=== PATIENT | female | born 1940 | race Caucasian/White ===

== ENCOUNTER 2018-11-20 14:15 | Inpatient (IN) | payer MEDICARE ==
[~2018-11-20] VITALS: Ht 165.1 cm; Wt 64.1 kg
[~2018-11-20 14:15] MED LIST: FLUO20CA39 PO; HYDR-4353 PO; PRED5TAB PO
[2018-11-20] MEDS ORDERED: acetaminophen 325mg tablet PO PRN ×2 (16:00)
[2018-11-20] MEDS ORDERED: mag hydrox/Alum hydrox/simeth 30ml oral suspension PO PRN (16:00)
[2018-11-20] MEDS ORDERED: magnesium hydroxide 30ml (MOM) UD suspension PO PRN (16:00)
[2018-11-20] MEDS ORDERED: tuberculin, purif. prot. deriv. 5 units/0.1ml ID ONE (16:15)
[2018-11-20] MEDS ORDERED: ROSU20TA2 PO (16:28)
--- NOTE | 2018-11-20 16:49 | NUR ---
Admit note: Pt admitted at 1545. Pt accepted from [facility]. Pt lives at home with her son Jules. Pt admitted for psychosis. Pt has history of depression,polymyalgia,depression,HTN,cavity tuberculosis post lobectomy, hip replacement. Pt presents here with some confusion, some difficulty ambulating. Pt states she normally does not use a walker but is usually incontinent. Pt is using attends. PT had some old bluish pajama pants with holes in them and soiled with stool. Pt chose to throw them away. Pt being educated on using a walker and will use bed alarm and gait belt. Pt oriented to the unit. Pt [id number] completed.
[2018-11-20 19:58] VITALS: BP 125/63
[2018-11-20] MEDS: atorvastatin 20mg tablet PO SCH (21:00)
--- NOTE | 2018-11-21 04:40 | NUR ---
Nursing Progress Note: Legal hold: 5150 Client on voluntary/involuntary status for GD/DTS/DTO: DTS, GD Report received from nurse with use of SBAR: Yes, from Whit OLSON Why are they here: Pt was transferred to [facility] from [facility] where she was taken to the ER for DTS due to a call from her neighbors that reported pt was voicing depression and suicidal ideation. Pt was placed on a 1799 for possible psychosis at [facility], pt was reportedly responding to internal stimuli and saying "just kill me." Pt lives with son, Hermelindo. Upon arrival to [facility] pt refused to sign all admission and registration papers. Assessment What has happened this shift: Patient stays in bed the entirety of shift aside from getting up to use the restroom. Patient appears aggravated at times, rolling her eyes or laughing under her breath at the headline writer when asking if she needs assistance. When headline writer mentioned she was on a behavioral health unit she acted shocked and said, "I don't know why we are here." At some points pt appears very lucid, gives a history that is linear, and is polite and smiles. Other moments she seems to become frustrated with herself or staff. She has some trouble putting her thoughts into words, for example she told headline writer her lips were dy and peeling and she needed something for them and was trying to think of a word. She became frustrated trying to come up with the word and said, "see I can't even remember what it is called anymore." She also says she can not recall when her memory problems began and says, "I might have been like this for a long time but I just can't remember." When asked if she is feeling suicidal she says,"no." She also denies feeling depressed or experiencing any AH/VH. She refuses her HS atorvastatin because she thinks she should be taking 1 pill, not 4. Financial Reporting Manager explained to patient that is the correct dose but she responded, "no I will not take these pills." Pt has a Hx of TB, which she underwent a lobe-ectomy for when she was a teenager. Per protocol a chest X-ray was ordered. When X-ray unit technician came she agreed to do the x-ray but just as unit technician was about to run the machine she lifted the blankets up over her face and had her arm right in front of her chest. Financial Reporting Manager asked her to please move her arm so the x-ray could be done and she would not respond and just kept the blanket in front of her face. After 5 minutes headline writer convinced the Pt to lower her arm. After the x-ray she would not remove the blanket from in front of her face and would no respond to headline writer. S/I, H/I: patient currently denies any SI/HI A/VH: patient denies, and is not seen responding to any internal stimuli Sleep: see sleep assessment notation ADL's: needs some assistance getting out of bed Group attendance:third shift lieutenant, no group Were meds taken: patient refused HS medication Any med S/E: none reported, none observed Mental Status Exam Appearance:[] Eye contact:[] Behavior:[] Speech:[] Mood:[] Affect:[] Thought process:[] Thought Content:[] Cognition:[] Insight:[] Judgment:[] Interventions PRN's used:[] Therapeutic interventions:[] Restraints/seclusion/emergency medication:[] Justification of Continued Inpatient Treatment:[] Addendum: 11/21/18 at 0500 by Izabella Kelly RN Mental Status Exam Appearance: slightly disheveled Eye contact: direct at times, then hides behind blanket Behavior: pt only gets out of bed to use restroom, becomes aggravated easily Speech: Pt has trouble "remembering the words for things" and often has a slight delay before answering a question Mood:labile Affect: depressed, confused Thought process: disorganized w/ memory loss Thought Content: perseverating on not being able to remember things Cognition: oriented to person, but not place, or time Insight: poor Judgment: poor Interventions PRN's used: n/a Therapeutic interventions: 1:1 allowed pt to express thoughts and feelings, reassured patient of safety, reoriented pt to reality, medication education, Q15 minute safety checks. Restraints/seclusion/emergency medication: n/a Justification of Continued Inpatient Treatment: Pt has made recent statements of feeling suicidal, has been observed responding to internal stimuli, and is only alert and oriented x 1. She is not able to formulate a plan to care for herself and shows no insight into her current situation.
[2018-11-21 07:44] VITALS: BP 139/74
[2018-11-21 09:09] LABS: HEMOGLOBIN A1C 5.9 % (4.5-6.2)
[2018-11-21 09:23] LABS: CHOL/HDL RATIO 2.6 (0.00-4.99); CHOLESTEROL 209 MG/DL (0-200); HDL CHOLESTEROL 81 MG/DL (35-60); LDL CHOLESTEROL 103 MG/DL (50-100); TRIGLYCERIDES 115 MG/DL (20-135)
--- NOTE | 2018-11-21 14:59 | NUR ---
Nursing Progress Note: Legal hold: 5150 Client on voluntary/involuntary status for GD/DTS/DTO: DTS, GD Report received from nurse with use of SBAR: Yes, from Jessica OLSON Why are they here: Pt was transferred to [facility] from [facility] where she was taken to the ER for DTS due to a call from her neighbors that reported pt was voicing depression and suicidal ideation. Pt was placed on a 1799 for possible psychosis at [facility], pt was reportedly responding to internal stimuli and saying "just kill me." Pt lives with son, Hermelindo. Upon arrival to [facility] pt refused to sign all admission and registration papers. Assessment What has happened this shift: Patient asleep at change of shift and awoken for blood draw. Patient refused. RN went to patient and encouraging her to allow food and nutrition professor to draw blood. Patient stated "and do what Missy did to me?". Patient then refused to allow blood draw. RN spoke calmly to patient but patient refused to answer. About 20 minutes later WESLEY Alan and food and nutrition professor went in and blood was drawn. Patient advised that breakfast was here. Patient covered her face with both hands and laid down on her side. Patient did not remove her hands and did not speak a word to RN though RN sitting next to patient speaking calmly to her. Patient sat up late morning and said she was hungry to Dayanna. Patient assisted to BR and patient had large BM and was able to clean herself and wash her hands, though her pull up was a little wet, patient changed to new pull-up. Patient ate about half of her breakfast. Patient taken to the lunch room where patient covered her face with both her hands while in the Community Room. Patient refused to eat any lunch or drink any fluid. Patient back to her bed. Later in the afternoon patient sitting up and speaking to WESLEY Alan. WESLEY Loomis joined and sat next to patient. Patient stated she is trying to make sense from her very confused brain. RN would comfort and encourage patient and attempt to orient patient. Patient stated "you told me the opposite yesterday", "hmpff, I don't believe you are a nurse or doctor." RN got patient talking about her animals in the past which she did for about 1 minute then would get slightly agitated at RN. Patient would not make eye contact and refused medication. Patient eventually covered her face with both her hands. Patient appears paranoid and very confused. S/I, H/I: pt would not answer A/VH: patient would not answer Sleep: patient napped a little today. ADL's: needs some assistance getting out of bed Group attendance: no group Were meds taken: patient refused once x dose of Ativan Any med S/E: none reported, none observed Mental Status Exam Appearance: disheveled Eye contact:none Behavior: resistant to care Speech: pressured Mood: paranoid Affect: depressed/anxious Thought process: appears confused Thought Content: survival Cognition: Insight: poor Judgment: poor Interventions PRN's used: attempted Ativan, patient refused Therapeutic interventions:1:1 Orienting patient, therapeutic interventions Allowed pt to express thoughts and feelings, reassured patient of safety, reoriented pt to reality, medication education, Q15 minute safety checks. RN gave patient a back rub with patient's permission. Restraints/seclusion/emergency medication: none Justification of Continued Inpatient Treatment: Pt has made recent statements of feeling suicidal, has been observed responding to internal stimuli, and is only alert and oriented x 1. She is not able to formulate a plan to care for herself and shows no insight into her current situation.
[2018-11-21] MEDS ORDERED: LORazepam 0.5 MG tablet PO ONE ×2 (15:15→21:15)
--- NOTE | 2018-11-21 15:45 | NUR ---
1:1 DISCHARGE PLANNING SW attempted to meet with pt to complete TANISHA and Psychosocial Assessment. Pt laid on bed with hands covering her face. She remained this way for several moments and did not respond to SW cues. SW attempted to speak with pt regarding her son Hermelindo, whom she lives with. Pt continued not responding. SW will attempt to meet with pt in the morning in hopes of improved cognition. EVELYNE Alonso
[2018-11-21] MEDS: atorvastatin 20mg tablet PO SCH (21:00)
--- NOTE | 2018-11-22 03:03 | NUR ---
Nursing Progress Note: Legal hold: 5150 Client on voluntary/involuntary status for GD/DTS/DTO: DTS, GD Report received from nurse with use of SBAR: Yes, from Vanessa OLSON Why are they here: Pt was transferred to [facility] from [facility] where she was taken to the ER for DTS due to a call from her neighbors that reported pt was voicing depression and suicidal ideation. Pt was placed on a 1799 for possible psychosis at [facility], pt was reportedly responding to internal stimuli and saying "just kill me." Pt lives with son, Hermelindo. Upon arrival to [facility] pt refused to sign all admission and registration papers. Assessment What has happened this shift: At change of shift pt is in community room hunched over with her face in her tray full of food. When staff tried to remove the tray from under her she became upset, staff did remove tray but she just put her face in her hands and put her face to her knees. Her son came to visit and sat next to her and tried talking with her. She would not repond or lift her head up to look at either one of us. She then said "I would like you to tranfer he back to [facility]." Film Or Videotape Editor reoriented pt to where she was and why but she would not respond. Film Or Videotape Editor encouraged her to take an ativan that was ordered but she refused multiple times. After her son left card writer hand wheeled her to her room and suggested she get in bed to rest to which she whispered "ok." Film Or Videotape Editor extended her hands to her and she held them but then gripped card writer hand's wrists tightly and pulled them into her chest and would not let go. She did not appear to be trying to hurt card writer hand but would give no explanation as to why she would not let go of card writer hand's wrists. Staff assisted in getting her to let go, and got her into bed although she was being very uncooperative and almost weight. She had a soiled brief on at this time and card writer hand encouraged her to let staff help her change and she said "no" multiple times. She would not remover her hands from her face. Film Or Videotape Editor reassured pt of safety and let her lay in bed for about an hour. After a hour card writer hand came back to check on her and she had relaxed somewhat and removed her hands from her face and made eye contact with card writer hand. Film Or Videotape Editor then asked how she was feeling and she said, "okay not too bad." She then got up w/ assistance and walked to the bathroom and changed her own brief. When she got back into bed she agreed to take the ativan. Film Or Videotape Editor educated pt on ativan to which she voiced understanding. She also drank 2 juice boxes, and ate 75% of a peanut butter and jelly sandwhich. When asked if she is feeling suicidal she looks right at card writer hand and says, "no." She also denies any AH/VH. S/I, H/I: pt denies A/VH: patient denies Sleep: see sleep assessment notation ADL's: needs some assistance getting out of bed Group attendance: shift lab technician, no group Were meds taken: ativan was taken x1 Any med S/E: none reported, none observed Mental Status Exam Appearance: disheveled Eye contact: avoids completely at beginning of shift, then direct eye contact once in bed Behavior: resistant to care, Speech: pressured, sparse, slow Mood: paranoid, isolative Affect: restricted,depressed,anxious Thought process: appears confused Thought Content: survival Cognition: Insight: poor Judgment: poor Interventions PRN's used: ativan Therapeutic interventions:1:1 Orienting patient, therapeutic interventions Allowed pt to express thoughts and feelings, reassured patient of safety, reoriented pt to reality, medication education, Q15 minute safety checks. Restraints/seclusion/emergency medication: none Justification of Continued Inpatient Treatment: Pt has made recent statements of feeling suicidal, has been observed responding to internal stimuli, and is only alert and oriented x 1. She is not able to formulate a plan to care for herself and shows no insight into her current situation.
[2018-11-22 07:29] VITALS: BP 120/83
--- NOTE | 2018-11-22 16:45 | NUR ---
1:1 DISCHARGE PLANNING KAR completed Neal Cognitive Assessment with pt. Pt scored 15/30 on cognitive abilities, appearing to have mild to moderate cognitive decline. Pt has been encouraged to attend an appointment with a psychologist or another provider who could assist in diagnosing pt if appropriate. KAR contacted pt's son, Elías Graf, to inform him of possible reasons behind his mother's change in thinking and bx. KAR encouraged Elías to work with APS and [facility] for assistance in gaining resources for pt. EVELYNE Alonso Addendum: 11/22/18 at 1705 by Sherita Pal SS KAR made TC to Dr. Hunter at [facility] , to discuss pt admission, Neal Cognitive Assessment he completed w/ pt. Per Dr. Hunter, pt attended an appointment in September, reporting she was concerned about her memory. He reports pt had difficulty completing test (didn't do too bad). Pt is reported to have been having bizarre bx, going outside at night, paranoid ideation. Per Dr. Hunter, he visited pt at [facility], reporting pt had significantly changed since September 2018. Per pt's daughter report, pt's sister declined quickly in her mental status upon being diagnosed with Alzhiemer quickly/rapidly. Per report, pt's in a locked psychiatric facility with dementia. Pt reportedly had little response or change in affect when learning this information. EVELYNE Alonso
--- NOTE | 2018-11-22 18:03 | NUR ---
Nursing Progress Note: Legal hold: 5150 Client on voluntary/involuntary status for DTS, GD Report received from WESLEY Parekh with use of SBAR Why are they here: Pt was transferred to [facility] from [facility] where she was taken to the ER for DTS due to a call from her neighbors that reported pt was voicing depression and suicidal ideation. Pt was placed on a 1799 for possible psychosis at [facility], pt was reportedly responding to internal stimuli and saying "just kill me." Pt lives with son, Hermelindo. Upon arrival to [facility] pt refused to sign all admission and registration papers. Assessment What has happened this shift: Patient is sleeping at shift change and no apparent distress observed. At breakfast time she refuses to get up. She sits in her bed with her hands covering her face. Breakfast tray is brought to her room and she is encouraged to eat, she denies. After 2 hrs patient did not touch her meal tray but did finally remove her hands from her face. She is not conversational and when speaking to her, patient sticks her fingers in her ears and then says she still has trouble hearing. Patient does not report any needs. She states To tell a lie, to tell the truth, its disgusting. She does not elaborate on this statement. At visiting time she has two visitors arrive her son and a friend. When told, patient gets right out of bed and into the wheelchair. When she returns to her room she is assisted with a walker twice to use the bathroom. After her visitors leave she states that she is hungry and would like a snack but not until after her table is cleaned. RN provided snack and cleaned table. Patient seemed bothered and irritated pointing out her dislike that it was cleaned the night prior. She takes a couple bites of a yogurt and states she does not like the way it tastes. She eats 2 luana crackers. She refuses to get up for lunch. A couple of hours later she is observed talking with her SW Sherita. Patient has difficulty explaining events that led her here. She reports some memory loss and at times she feels like her son, who lives with her, is not her son. She becomes mildly frustrated, pauses in thought often and loses track of what she was trying to say. Around 1600, patients mood seemed improved. She allowed RN to assess her and accepted a cup of tea, stating thankyou. She did not get up for dinner and was observed sleeping. S/I, H/I: none reported A/VH: none reported Sleep: 8.75 NOC ADL's: able to get out of bed unassisted when visitors arrived Group attendance: no Were meds taken: N/A Any med S/E: none reported, none observed Mental Status Exam Appearance: disheveled Eye contact: once she uncovered her face with her hands she did make direct eye contact Behavior: resistant to care, friendlier in the afternoon Speech: soft tone, very few words spoken Mood: appears anxious and confused, at times frustrated Affect: restricted Thought process: appears confused, pause often Thought Content: difficulty explaining what she wants to say Cognition: a/o xs1 Insight: poor Judgment: poor Interventions PRN's used: none Therapeutic interventions: 1:1 therapeutic assessment, maintained safe therapeutic milieu, encouraged to attend groups, Q 15 min safety checks. Restraints/seclusion/emergency medication: none Justification of Continued Inpatient Treatment: Pt made statements of feeling suicidal when admitted into the ER. She is only alert and oriented x 1. She is not able to formulate a plan to care for herself and shows no insight into her current situation. Treatment: Continued therapeutic support and medication adjustment needed to provide stabilization, symptom management & prevent decompensation, decreasing risk to patient and readmittance.
[2018-11-22 20:00] VITALS: BP 146/92
[2018-11-22] MEDS: atorvastatin 20mg tablet PO SCH (20:10)
--- NOTE | 2018-11-22 23:08 | NUR ---
Nursing Progress Note: Legal hold: 5150 Client on involuntary status for DTS, GD Report received from WESLEY Magallon with use of SBAR Why are they here: Pt was transferred to [facility] from [facility] where she was taken to the ER for DTS due to a call from her neighbors that reported pt was voicing depression and suicidal ideation. Pt was placed on a 1799 for possible psychosis at [facility], pt was reportedly responding to internal stimuli and saying "just kill me." Pt lives with son, Hermelindo. Upon arrival to [facility] pt refused to sign all admission and registration papers. Assessment What has happened this shift: Patient is sleeping at shift change of shift, with her hands covering her face; "It is so bright". Pt smells of urine so RN assists pt to the bathroom with the use of a walker, helps change the depend. Pt comments on her appearance "I look horrible!" RN suggests a shower but pt declines. RN assists pt back to bed, where the pt agrees to a 1:1 assessment. She refuses to have her temperature taken. Patient will not confirm whether she feels suicidal, but denied hearing or seeing anything outside of reality. Pt is unable to coherently explain why she is at ; she states "I am just in this place. My family would be so upset of they knew of my past mistakes with the property taxes." She is tearful as she states this then continues to talk about her son, saying "He had just came back, from where I don't know." Pt becomes mildly frustrated during various moments during the conversation, unable to maintain her train of thought or verbalize what she is thinking. She states "I've been confused. I just don't know." RN provided fruit and pudding cup which pt ate and enjoyed, as well as a cup of tea and a couple luana crackers. She declined other food that was offered. Pt refused her medications. RN reinforced the importance of calling for help when the pt wants to get up to use the restroom. Pt demonstrated where to find the RN call button. RN provided pt with new socks and a warm blanket. Pt turned in to sleep, with her hands covering her face at 2040. S/I, H/I: None reported; Pt would not answer this assessment question A/VH: None reported Sleep: See Charting ADL's: Requires standby assistance with walker during transfers Group attendance: N Were meds taken: N; Refused Any med S/E: None reported, None observed Mental Status Exam Appearance: Pt is wearing personal T-shirt, green scrub pants with anti-slip socks. Hair is disheveled. Eye contact: Direct when not covering face with hands Behavior: Takes multiple attempts to follow direction due to resistive behavior (eg toilet, eat) Speech: Soft tone, slowed rhythm, intermittent pauses during conversation Mood: Frustrated, Tearful, Confused Affect: Constricted Thought process: Memory Lapses, Confusion Present, Intermittent Pausing Thought Content: Unable to clearly express thoughts Cognition: A/O x 1 Insight: Poor Judgment: Poor Interventions PRN's used: None Therapeutic interventions: 1:1 therapeutic assessment, maintained safe therapeutic milieu, encouraged to attend groups, Q 15 min safety checks. Restraints/seclusion/emergency medication: None Justification of Continued Inpatient Treatment: Pt made statements of feeling suicidal when admitted into the ER. She is only alert and oriented x 1. She is not able to formulate a plan to care for herself and shows no insight into her current situation. Treatment: Continued therapeutic support and medication adjustment needed to provide stabilization, symptom management & prevent decompensation, decreasing risk to patient and readmittance.
[2018-11-23] MEDS ORDERED: LORazepam 1 MG tablet PO ONE (03:25)
[2018-11-23] MEDS ORDERED: LORazepam 0.5 MG tablet PO PRN (03:25)
--- NOTE | 2018-11-23 03:34 | NUR ---
Pt hit call light and reported to PCT that she was hearing voices that told her to hit the call light, and requested that we make the voices stop. I went in to talk to pt and she had her hands over her eyes, I asked her some questions regarding the voices and what they were saying and she responded by stating "they are telling me I am trying too hard to come up with the right answer. I just want it to stop!" I contacted Manpreet Clemons to notify him as pt has no PRN's, he ordered Ativan 1 mg po x1 now and Ativan 0.5 mg po BID prn. Pt took after some prompting and reassurance, she did become irritable when I tried to put the head of the bed up in order to take the meds, stating "You don't have to do that!"
[2018-11-23 11:20] VITALS: BP 117/65
--- NOTE | 2018-11-23 13:28 | NUR ---
1:1 DISCHARGE PLANNING KAR made TC to pt's son, Elías, informing him that pt would be discharged this day because she does not meet legal requirements for psychiatric acute tx services. KAR reported to APS and requested emergency services. KAR completed application for [facility] services and requested urgent approval. KAR contacted pt friend, Suma, who reports she can care for pt during day when Elías is at work. Pt's daughter, Jaqui, contacted KAR. KAR encouraged Jaqui to speak with APS regarding pt needs and work with family to build support team for pt. Suma agrees to be present and assist for pt discharge at 3:30pm this day. Suma will oversee medication needs for pt. Pt is scheduled to attend post hospital follow up care for pt on 11/27/2018 at 10:30a. KAR has encouraged referral to neurologist and/or psychologist. EVELYNE Alonso
[2018-11-23] MEDS ORDERED: ATI0.5T PO (14:16)
--- NOTE | 2018-11-23 14:29 | NUR ---
Malnutrition consult: Pt admit w/ psychosis remains altered AOx2. PO 0-25% meals or refusing 4 days since admit not meeting needs. Pt has severe weakness w/ low PO hx and qualifies for severe malnutrition at this time. RD d/w RN for vitamin D supplementation as well as appetite stimulant per MD approval given low PO and hx vitamin D deficiency. RN reports pt more likely to eat puddings so ensure pudding TIDWM added; dietary notified. Will continue to monitor for further ONS needs this admit. Rec: 1. continue regular diet 2. ensure pudding TIDWM 3. appetite stimulant and vitamin D per MD approval 4. weekly wts Addendum: 11/23/18 at [address] Amended: Links added.
--- NOTE | 2018-11-23 16:27 | NUR ---
PROFILING MACHINE SET UP OPERATOR NOTE Patient is accompanied off the unit at 1555 by her son Hermelindo, friend and Sherita Ruiz RN. Patient will be going to her home where she lives with Hermelindo via his car. All valuables were with patient. Patient has f/u appointment scheduled and appointment information is provided to patient and her son. Patient appears overwhelmed with discharge process but brightens when she is taken outside. Patient showed signs of improvement today as she became more comfortable. She did not cover her face with her hands when attempting to talk to her and she ate both breakfast and lunch. Nicotine replacement was not offered as it was N/.A.
== END 2018-11-23 15:55 | disposition home or self-care (01) | DRG 880 ==
LOC: ADULT MH 14:15
PROVIDERS: ADMIT Psychiatry & Neurology Psychiatry; ATTEND Psychiatry & Neurology Psychiatry
DX: F41.1 Generalized anxiety disorder (principal); R45.851 Suicidal ideations; F03.90 Unspecified dementia, unspecified severity, without behavioral disturbance, psychotic disturbance, mood disturbance, and anxiety; F32.9 Major depressive disorder, single episode, unspecified; M35.3 Polymyalgia rheumatica; E55.9 Vitamin D deficiency, unspecified; E78.00 Pure hypercholesterolemia, unspecified; E78.5 Hyperlipidemia, unspecified; Z82.0 Family history of epilepsy and other diseases of the nervous system
CPT/HCPCS: 36415; 71045; 80061; 83036; 84443; 87070

== ENCOUNTER 2018-12-19 11:38 | Inpatient (IN) | payer MEDICARE ==
[~2018-12-19] VITALS: Ht 157.5 cm; Wt 79.0 kg
[~2018-12-19 11:38] MED LIST changes: +ATI0.5T PO; -FLUO20CA39 PO; -HYDR-4353 PO; -PRED5TAB PO; +ROSU20TA2 PO
[2018-12-19 12:44] LABS: CLARITY,URINE CLOUDY (Clear); COLOR,URINE YELLOW (Yellow); GLUCOSE, URINE NEGATIVE (Neg); KETONES,URINE 15 mg/dl (Neg); LEUKOCYTE ESTERASE ,URINE MODERATE (Neg); NITRITES, URINE NEGATIVE (Neg); OCCULT BLOOD,URINE SMALL (Neg); PROTEIN,URINE 100 mg/dl (Neg); UROBILINOGEN,URINE 0.2 E.U/dL (0.2-1.0)
[2018-12-19 12:45] LABS: UA COLLECTION TYPE STRAIGHT CATH
[2018-12-19 12:50] LABS: URINE AMPHETAMINE SCREEN NEGATIVE (Neg); URINE BARBITUATE SCREEN NEGATIVE (Neg); URINE BENZODIAZEPINES SCREEN NEGATIVE (Neg); URINE CANNABINOID SCREEN NEGATIVE (Neg); URINE COCAINE SCREEN NEGATIVE (Neg); URINE METHADONE SCREEN NEGATIVE (Neg); URINE OPIATE SCREEN NEGATIVE (Neg); URINE PHENCYCLIDINE SCREEN NEGATIVE (Neg)
[2018-12-19 12:54] LABS: BACTERIA,URINE 3+ /HPF (Neg); SQUAMOUS EPITHELIAL CELL,UR FEW /LPF (FEW); WBC,URINE TNTC /HPF (0-4)
[2018-12-19 13:04] LABS: BASOPHILS % (AUTO) 0.3 % (0-1); EOSINOPHILS % (AUTO) 0.1 % (0-6); HEMATOCRIT 45.8 % (35.0-45.0); HEMOGLOBIN 15.7 g/dl (12.0-16.0); LYMPHOCYTES # (AUTO) 0.7 X10'3 (1.1-4.8); LYMPHOCYTES % (AUTO) 7.1 % (21-51); MEAN CORPUSCULAR HEMOGLOBIN 30.4 PG (27.0-31.0); MEAN CORPUSCULAR HGB CONC 34.2 g/dL (33.0-36.5); MEAN CORPUSCULAR VOLUME 88.7 FL (78-98); MEAN PLATELET VOLUME 8.5 FL (7.4-10.4); MONOCYTES # (AUTO) 0.6 X10'3 (0-0.9); MONOCYTES % (AUTO) 5.7 % (2-12); NEUTROPHILS # (AUTO) 8.5 X10'3 (1.8-7.7); NEUTROPHILS % (AUTO) 86.8 % (42-75); PLATELET COUNT 187 X10'3 (140-440); RED BLOOD COUNT 5.16 X10'6 (4.20-5.60); WHITE BLOOD COUNT 9.8 X10'3 (4.5-11.0)
[2018-12-19 13:19] LABS: AMMONIA < 10 UMOL/L (11-32)
[2018-12-19 13:23] LABS: ALANINE AMINOTRANSFERASE 24 U/L (12-78); ALBUMIN 3.2 G/DL (3.4-5.0); ALBUMIN/GLOBULIN RATIO 0.9 (1.1-1.5); ALKALINE PHOSPHATASE 69 IU/L (46-116); ANION GAP 10 (8-16); ASPARTATE AMINO TRANSFERASE 38 U/L (10-37); BILIRUBIN,TOTAL 0.5 MG/DL (0.1-1.0); BLOOD UREA NITROGEN 19 MG/DL (7-18); BUN/CREATININE RATIO 23.2 (6.6-38.0); CALCIUM 8.6 MG/DL (8.5-10.1); CHLORIDE 106 MMOL/L (99-107); CREATININE 0.82 MG/DL (0.40-0.90); GLUCOSE 94 MG/DL (70-104); POTASSIUM 3.2 MMOL/L (3.5-5.1); SODIUM 141 MMOL/L (135-145); TOTAL PROTEIN 6.6 G/DL (6.4-8.2); eGFR 67 ML/MIN
[2018-12-19 13:32] LABS: ETHANOL < 0.010 GM/DL (0.0-0.010); LACTIC SEPSIS 1.5 MMOL/L (0.4-2.0); MAGNESIUM 1.6 MG/DL (1.5-2.4)
--- NOTE | 2018-12-19 14:18 | NUR ---
Rhonda liu in [facility] - 12/19/18 at [address] TAVAREZ AT BEDSIDE
[2018-12-19] MEDS ORDERED: normal saline 1000ML IV soln IVB ONE (14:20)
[2018-12-19] MEDS ORDERED: potassium Cl 20 mEq SR tablet PO STA (14:20)
[2018-12-19] MEDS ORDERED: CefTRIAXone 2gm/D5W 50ml 50 ML IV ONE (14:20)
[2018-12-19] MEDS ORDERED: ondansetron/PF 4mg/2ml inj IV PRN (14:50)
[2018-12-19] MEDS ORDERED: magnesium Cl slow-release 64mg tablet PO PRN (14:50)
[2018-12-19] MEDS ORDERED: magnesium 4gm in 100ml NS 100 ML IV PRN (14:50)
[2018-12-19] MEDS ORDERED: potassium Cl 20 mEq SR tablet PO PRN ×2 (14:50)
[2018-12-19] MEDS ORDERED: potassium Cl 40MEQ/NS 500ml 500 ML IV PRN ×2 (14:50)
[2018-12-19] MEDS ORDERED: magnesium 2GM in 50ml NS 50 ML IV PRN (14:50)
[2018-12-19] MEDS: normal saline 1000ml 1,000 ML IV SCH ×3 (15:17→21:01)
[2018-12-19] MEDS ORDERED: LORA0.5T PO (15:22)
--- NOTE | 2018-12-19 18:54 | NUR ---
PT C/O NAUSEA/ADM ZOFRAN.
--- NOTE | 2018-12-19 20:28 | NUR ---
Patient in room . I have received report from WESLEY Ibarra in ED and had the opportunity to ask questions and will assume patient care when pt arrives to unit
[2018-12-19 20:45] VITALS: BP 130/66
--- NOTE | 2018-12-19 23:48 | NUR ---
Attempted to change field start IV out by two different nurses with failed attempts. Pt is refusing to allow us to try any more and would like to keep her field start at this time.
[2018-12-20] VITALS: BP 100/58
[2018-12-20] MEDS: normal saline 1000ml 1,000 ML IV SCH (04:56)
[2018-12-20 05:54] LABS: BASOPHILS % (AUTO) 0.6 % (0-1); EOSINOPHILS % (AUTO) 0.5 % (0-6); HEMATOCRIT 38.2 % (35.0-45.0); HEMOGLOBIN 12.7 g/dl (12.0-16.0); LYMPHOCYTES # (AUTO) 1.2 X10'3 (1.1-4.8); LYMPHOCYTES % (AUTO) 16.3 % (21-51); MEAN CORPUSCULAR HEMOGLOBIN 29.9 PG (27.0-31.0); MEAN CORPUSCULAR HGB CONC 33.2 g/dL (33.0-36.5); MEAN CORPUSCULAR VOLUME 89.9 FL (78-98); MEAN PLATELET VOLUME 8.9 FL (7.4-10.4); MONOCYTES # (AUTO) 0.6 X10'3 (0-0.9); MONOCYTES % (AUTO) 8.2 % (2-12); NEUTROPHILS # (AUTO) 5.3 X10'3 (1.8-7.7); NEUTROPHILS % (AUTO) 74.4 % (42-75); PLATELET COUNT 165 X10'3 (140-440); RED BLOOD COUNT 4.25 X10'6 (4.20-5.60); RED CELL DISTRIBUTION WIDTH 15.2 % (11.5-14.5); WHITE BLOOD COUNT 7.2 X10'3 (4.5-11.0)
[2018-12-20 06:22] LABS: ALBUMIN 2.3 G/DL (3.4-5.0); ANION GAP 10 (8-16); BLOOD UREA NITROGEN 14 MG/DL (7-18); BUN/CREATININE RATIO 18.7 (6.6-38.0); CALCIUM 8.1 MG/DL (8.5-10.1); CHLORIDE 110 MMOL/L (99-107); CREATININE 0.75 MG/DL (0.40-0.90); GLUCOSE 78 MG/DL (70-104); MAGNESIUM 1.6 MG/DL (1.5-2.4); SODIUM 142 MMOL/L (135-145); TOTAL CARBON DIOXIDE 22.1 MMOL/L (24-32); eGFR 75 ML/MIN
--- NOTE | 2018-12-20 06:29 | NUR ---
Problems reprioritized. Patient report given, questions answered & plan of care reviewed with WESLEY Barr.
[2018-12-20 07:00] VITALS: BP 132/68
[2018-12-20] MEDS: K and/or MAG REPLACEMENT MC SCH (08:00)
[2018-12-20] MEDS: CefTRIAXone/D5W-Rocephin 1gm 50 ML IV SCH (09:41)
[2018-12-20 12:00] VITALS: BP 132/69
--- NOTE | 2018-12-20 14:29 | NUR ---
Malnutrition consult re: poor eating lately. Unable to assess PO intake as pt is currently NPO. Patient's current weight is up 15 kg since documented wt of 64.09 kg on 11/20/18 using bed scale; current documented wt is 79 kg using gurney scale. Pt with no documented edema or significant decrease in muscle strength. Pt admit with AMMON, UTI, and AMS, per physical assessment pt A/O x 2. Per documented weights pt with no wt loss. Pt currently lacking a minimum of 2 criteria for malnutrition. Will continue to follow. Addendum: 12/20/18 at [address] Amended: Links added.
[2018-12-20] MEDS ORDERED: LORazepam 2 mg/ml vial IV ONE (17:45)
[2018-12-20] MEDS ORDERED: LORazepam 0.5 MG tablet PO PRN (17:45)
--- NOTE | 2018-12-20 18:15 | NUR ---
Patient in room [facility]. I have received report from WESLEY Barr and had the opportunity to ask questions and assume patient care.
[2018-12-20 19:00] VITALS: BP 157/89
[2018-12-20] MEDS: lactobacillus rhamnosus 10,000 MMU CELLS/CAPSULE PO SCH (21:15)
[2018-12-21 00:30] VITALS: BP 138/84
[2018-12-21] MEDS: normal saline 1000ml 1,000 ML IV SCH (02:53)
[2018-12-21 05:50] LABS: BASOPHILS % (AUTO) 0.6 % (0-1); EOSINOPHILS # (AUTO) 0.1 X10'3 (0-0.9); EOSINOPHILS % (AUTO) 0.8 % (0-6); HEMATOCRIT 39.2 % (35.0-45.0); HEMOGLOBIN 13.2 g/dl (12.0-16.0); LYMPHOCYTES # (AUTO) 1.1 X10'3 (1.1-4.8); LYMPHOCYTES % (AUTO) 15.5 % (21-51); MEAN CORPUSCULAR HEMOGLOBIN 29.8 PG (27.0-31.0); MEAN CORPUSCULAR HGB CONC 33.7 g/dL (33.0-36.5); MEAN CORPUSCULAR VOLUME 88.4 FL (78-98); MEAN PLATELET VOLUME 8.9 FL (7.4-10.4); MONOCYTES # (AUTO) 0.6 X10'3 (0-0.9); MONOCYTES % (AUTO) 8.6 % (2-12); NEUTROPHILS # (AUTO) 5.5 X10'3 (1.8-7.7); NEUTROPHILS % (AUTO) 74.5 % (42-75); PLATELET COUNT 181 X10'3 (140-440); RED BLOOD COUNT 4.43 X10'6 (4.20-5.60); WHITE BLOOD COUNT 7.4 X10'3 (4.5-11.0)
[2018-12-21 06:03] LABS: ALBUMIN 2.5 G/DL (3.4-5.0); ANION GAP 13 (8-16); BLOOD UREA NITROGEN 6 MG/DL (7-18); CALCIUM 8.3 MG/DL (8.5-10.1); CHLORIDE 106 MMOL/L (99-107); GLUCOSE 75 MG/DL (70-104); MAGNESIUM 1.6 MG/DL (1.5-2.4); POTASSIUM 3.6 MMOL/L (3.5-5.1); SODIUM 142 MMOL/L (135-145); TOTAL CARBON DIOXIDE 22.9 MMOL/L (24-32); eGFR > 90 ML/MIN
--- NOTE | 2018-12-21 06:47 | NUR ---
Problems reprioritized. Patient report given, questions answered & plan of care reviewed with WESLEY Lezama.
--- NOTE | 2018-12-21 06:49 | NUR ---
Patient in room [facility]. I have received report from Jose OLSON and had the opportunity to ask questions and assume patient care.
[2018-12-21 07:00] VITALS: BP 129/78
[2018-12-21] MEDS: K and/or MAG REPLACEMENT MC SCH (08:00)
[2018-12-21] MEDS: lactobacillus rhamnosus 10,000 MMU CELLS/CAPSULE PO SCH ×2 (08:00→08:25)
[2018-12-21] MEDS: CefTRIAXone/D5W-Rocephin 1gm 50 ML IV SCH (08:25)
[2018-12-21] MEDS ORDERED: FLUO20CA22 PO (09:44)
--- NOTE | 2018-12-21 10:03 | NUR ---
Dr. Chandler ordered patient to be discharge to Mental Health Unit, charge nurse Antionette notified. EJ Adams and Woolen Tester Shanika notified about this. EJ Adams and SS Worker Shanika told me that patient had been declined previously due to dementia and has not qualified to go back there. ALIYA Voss talked to Dr. Chandler about this
--- NOTE | 2018-12-21 10:12 | NUR ---
Left a voicemail message to the daughter to call me back so I can let them know about the discharge order
--- NOTE | 2018-12-21 10:23 | NUR ---
Left a voicemail message also to the son's number on file to call me back at the hospital
--- NOTE | 2018-12-21 11:24 | NUR ---
D/C'd sheldon catheter per order
--- NOTE | 2018-12-21 14:15 | NUR ---
Discharge patient home accompanied by her son. PeripheraL IV catheter removed, tip intact. Patient has dementia, discharge instructions given to son. Patient's son verbalized understanding of all instructions made including follow up with PCP. New prescription for Prozac filled by [facility] at bedside. Belongings sent with the patient. ax survey worker Shanika talked to the son about community resources needed and was instructed to ensure patient seen by PCP. KAR Voss asked Dr. Chandler if patient will be going home with PO antibiotic, Dr. Chandler said patient do not need PO antibiotic when patient goes home.
== END 2018-12-21 14:15 | disposition home health service (06) | DRG 690 ==
LOC: ER 11:38 → SUR 3N 14:55 → CMPBEDREQ 20:57 → SUR 3N 21:00
PROVIDERS: ADMIT Internal Medicine; ATTEND Internal Medicine
DX: N39.0 Urinary tract infection, site not specified (principal); F41.1 Generalized anxiety disorder; M35.3 Polymyalgia rheumatica; F03.90 Unspecified dementia, unspecified severity, without behavioral disturbance, psychotic disturbance, mood disturbance, and anxiety; R91.1 Solitary pulmonary nodule; F32.9 Major depressive disorder, single episode, unspecified; M79.7 Fibromyalgia; Z96.642 Presence of left artificial hip joint; Z90.711 Acquired absence of uterus with remaining cervical stump; Z90.49 Acquired absence of other specified parts of digestive tract; Z79.899 Other long term (current) drug therapy; Z87.891 Personal history of nicotine dependence
CPT/HCPCS: 36415; 70450; 71045; 80048; 80053; 80305; 80320; 81001; 82140; 82948; 83605; 83735; 83880; 84439; 84443; 84484; 85025; 87040; 87070; 87088; 93005; 96365; 97116; 97162; 97530; 99285; G0378; J0696; J2060; J2405; J7030

== ENCOUNTER 2019-09-18 11:52 | Emergency (ER) | payer MEDICARE, MEDICAID ==
[~2019-09-18] VITALS: Ht 167.6 cm; Wt 54.5 kg
[~2019-09-18 11:52] MED LIST changes: -ATI0.5T PO; +FLUO-167 PO
--- NOTE | 2019-09-18 12:03 | NUR ---
DR ANAYA INFORMED OF PT STATUS AND ALSO PAGED AND SPOKE WITH MASSIEL COPPER ROLLER HANDLER PRINTING.
--- NOTE | 2019-09-18 13:58 | NUR ---
PATIENT RIPPED OFF HER BP CUFF AND SPO2 PROBE AND REFUSED AT THIS TIME TO GET INTO A GOWN, PATIENT SWINGING ARMS PATIENT ORIENTED TO SELF ONLY, REORIENTED TO LOCATION, MONTH YEAR DAY PATIENT DOES NOT KNOW WHY SHE IS HERE PATIENT DID SPEAK OF A PREVIOUS MENTAL HEALTH EVALUATION WHEN I TOLD HER THAT SHE WAS IN THE HOSPITAL WHEN ASKED QUESTIONS PATIENT DOES NOT RESPOND, TALKS ABOUT ALL THE STUPID CHILDREN MAKING FACES AT HER AND MAKING TOO MUCH NOISE
[2019-09-18] MEDS ORDERED: LORazepam 2 mg/ml vial IV ONE (14:05)
--- NOTE | 2019-09-18 14:06 | NUR ---
DISCUSSED PATIENT STATUS OF REFUSING TO ASSIST US IS HER CARE AND PATIENT WOULD PROBABLY NOT STAY STILL FOR A HEAD CT, I HAD TO HAVE AN ARM HOLD TO DRAW BLOOD AND START A IV , BELLA RECEIVED
[2019-09-18 14:11] LABS: BASOPHILS % (AUTO) 0.6 % (0-1); EOSINOPHILS # (AUTO) 0.1 X10'3 (0-0.9); EOSINOPHILS % (AUTO) 1.1 % (0-6); HEMATOCRIT 41.7 % (35.0-45.0); HEMOGLOBIN 14.2 g/dl (12.0-16.0); LYMPHOCYTES # (AUTO) 1.8 X10'3 (1.1-4.8); LYMPHOCYTES % (AUTO) 24.8 % (21-51); MEAN CORPUSCULAR VOLUME 88.3 FL (78-98); MEAN PLATELET VOLUME 8.7 FL (7.4-10.4); MONOCYTES # (AUTO) 0.5 X10'3 (0-0.9); MONOCYTES % (AUTO) 6.6 % (2-12); NEUTROPHILS # (AUTO) 4.9 X10'3 (1.8-7.7); NEUTROPHILS % (AUTO) 66.9 % (42-75); PLATELET COUNT 206 X10'3 (140-440); RED BLOOD COUNT 4.72 X10'6 (4.20-5.60); RED CELL DISTRIBUTION WIDTH 15.5 % (11.5-14.5); WHITE BLOOD COUNT 7.3 X10'3 (4.5-11.0)
[2019-09-18 14:24] LABS: ALANINE AMINOTRANSFERASE 19 U/L (12-78); ALBUMIN/GLOBULIN RATIO 0.8 (1.1-1.5); ALKALINE PHOSPHATASE 82 IU/L (46-116); ANION GAP 6 (8-16); ASPARTATE AMINO TRANSFERASE 25 U/L (10-37); BILIRUBIN,TOTAL 0.3 MG/DL (0.1-1.0); BLOOD UREA NITROGEN 16 MG/DL (7-18); BUN/CREATININE RATIO 20.8 (6.6-38.0); CALCIUM 8.4 MG/DL (8.5-10.1); CHLORIDE 107 MMOL/L (99-107); CREATININE 0.77 MG/DL (0.40-0.90); GLUCOSE 64 MG/DL (70-104); POTASSIUM 3.6 MMOL/L (3.5-5.1); SODIUM 143 MMOL/L (135-145); TOTAL PROTEIN 6.7 G/DL (6.4-8.2); eGFR 72 ML/MIN
[2019-09-18 14:27] LABS: TROPONIN I < 0.04 NG/ML (0.0-0.05)
[2019-09-18 14:28] LABS: PARTIAL THROMBOPLASTIN TIME 21 SECONDS (22-32)
--- NOTE | 2019-09-18 14:38 | NUR ---
Straight cath obtained without difficulty. Pt transported to CT scan via gurney with the side rails raised.
[2019-09-18 14:58] LABS: CLARITY,URINE SLIGHTLY CLOUDY (Clear); COLOR,URINE YELLOW (Yellow); GLUCOSE, URINE NEGATIVE (Neg); KETONES,URINE NEGATIVE (Neg); LEUKOCYTE ESTERASE ,URINE SMALL (Neg); NITRITES, URINE POSITIVE (Neg); OCCULT BLOOD,URINE TRACE-INTACT (Neg); PH,URINE 5.5 (4.8-8.0); PROTEIN,URINE TRACE mg/dl (Neg); UROBILINOGEN,URINE 0.2 E.U/dL (0.2-1.0)
[2019-09-18 15:00] LABS: UA COLLECTION TYPE STRAIGHT CATH
[2019-09-18 15:10] LABS: MUCUS STRANDS MODERATE /LPF (Neg); SQUAMOUS EPITHELIAL CELL,UR FEW /LPF (FEW)
[2019-09-18 15:11] LABS: WBC,URINE TNTC /HPF (0-4)
[2019-09-18 15:12] LABS: BACTERIA,URINE 3+ /HPF (Neg); RBC,URINE 0-2 /HPF (0-2); WBC CLUMPS,URINE FEW /HPF (NEGATIVE)
[2019-09-18] MEDS ORDERED: CefTRIAXone/D5W-Rocephin 1gm 50 ML IV ONE (16:00)
--- NOTE | 2019-09-18 16:21 | NUR ---
SMALL PARTS SHAPER OPERATOR NOEL WANTS TO RETURN PATIENT TO HER FACILITY
[2019-09-18] MEDS ORDERED: RISP1SOL PO (16:44)
--- NOTE | 2019-09-18 17:02 | NUR ---
Spoke with WESLEY Yarbrough @ [facility] ([phone]) to provide update on pt status and determine transport for pt. Linnea will contact [facility] and make transport arrangements and call back with details. Primary RN Leisa velázquez.
--- NOTE | 2019-09-18 17:05 | NUR ---
Per Linnea, [facility] will be here in 20 minutes. Primary RN Leisa notified.
--- NOTE | 2019-09-18 17:27 | NUR ---
called WESLEY Yarbrough as [facility] personnel questioned appropriateness of unescorted pt transport. Per Linnea, pt ok to travel without escort. One was provided @ time of arrival d/t pt's agitation level which as this RN reported has abated while here.
[2019-09-18 17:33] VITALS: BP 126/75
--- NOTE | 2019-09-21 08:25 | NUR ---
called phone number listed and got a hold of pt's son. he told me she lives at [facility].
--- NOTE | 2019-09-21 08:29 | NUR ---
called [facility]. nurse told me to please fax the antibiotic we would like, pt.s lab work, and the culture and sensitivity to them at [phone]. he stated they have a physician in house and he will look at these items and order the antibiotics if pt. meets their criteria. faxing items now.
== END 2019-09-18 17:38 | disposition home or self-care (01) ==
LOC: ER 11:54
DX: F03.91 Unspecified dementia, unspecified severity, with behavioral disturbance (principal); N39.0 Urinary tract infection, site not specified; M79.7 Fibromyalgia; Z90.710 Acquired absence of both cervix and uterus; Z79.899 Other long term (current) drug therapy
CPT/HCPCS: 36415; 70450; 71045; 80053; 81001; 84484; 85025; 85610; 85730; 87077; 87088; 87186; 93005; 96365; 96375; 99284; J0696; J2060